=== PATIENT | male | born 1985 | race African-American/Black ===

== ENCOUNTER 2020-01-24 21:03 | Emergency (ER) | payer MEDICAID, SELFPAY ==
[~2020-01-24] VITALS: Ht 170.2 cm; Wt 78.0 kg
[2020-01-24 21:28] VITALS: BP 151/70
--- NOTE | 2020-01-24 21:43 | Emergency Room Report ---
History of Present Illness General Chief Complaint: Skin Rash/Abscess Source: Patient Present Illness HPI 34-year-old male with no significant past medical history history here complaining of a painful and pruritic rash on right lower extremity. Patient reports that started yesterday while he was gardening. Reports that he found to spiders himself however does not recall whether this was due to a spider bite. Obvious bite site noted with cellulitis. Warm to touch. Rates the pain 3 out of 10 at this time without any radiation. Denies any tingling or numbness. Complains of extreme pruritus. Has not taken medication for symptom relief. Has been elevating it and icing it. Denies any chest pain, shortness of breath, fever and chills. Denies any nausea vomiting. Allergies: Coded Allergies: AMOXICILLIN (Verified Allergy, Unknown, 01/24/20) PENICILLINS (Verified Allergy, Unknown, 01/24/20) COVID-19 Screening Contact w/high risk pt: No Recent Travel to affected area: No Experienced COVID-19 symptoms?: No COVID-19 Testing performed CLINICAL COUNSELOR: No Patient History Past Medical History: see triage record Past Surgical History: none Pertinent Family History: none Immunizations: UTD Reviewed Nursing Documentation: PMH: Agreed; PSxH: Agreed Nursing Documentation-PMH Past Medical History: No Stated History Review of Systems All Other Systems: negative except mentioned in HPI Physical Exam Vital Signs Date Time Temp Pulse Resp B/P (MAP) Pulse Ox O2 Delivery O2 Flow Rate FiO2 01/24/20 21:19 98.4 100 20 151/70 (97) 99 Room Air Sp02 EP Interpretation: reviewed, normal General Appearance: no apparent distress, alert, GCS 15, non-toxic Head: normocephalic, atraumatic Eyes: bilateral eye normal inspection, bilateral eye PERRL ENT: hearing grossly normal, normal pharynx, no angioedema, normal voice Neck: full range of motion, supple/symm/no masses Respiratory: chest non-tender, lungs clear, normal breath sounds, no rhonchi, no retraction, speaking full sentences Cardiovascular #1: regular rate, rhythm, no edema, no murmur Cardiovascular #2: 2+ dorsalis pedis (R), 2+ dorsalis pedis (L) Gastrointestinal: normal bowel sounds, non tender, soft, non-distended, no guarding, no rebound Rectal: deferred Genitourinary: no CVA tenderness Musculoskeletal: back normal, no calf tenderness, swelling - Anterior right lateral calf status post insect bite with cellulitis no pus drainage noted Neurologic: alert, motor strength/tone normal, oriented x3, sensory intact, responsive, speech normal Psychiatric: judgement/insight normal, memory normal, mood/affect normal, no suicidal/homicidal ideation Skin: other - Cellulitis right lower leg status post insect bite Lymphatic: no adenopathy Medical Decision Making PA Attestation All diagnoses and treatment plans were reviewed and discussed with my supervising physician Dr. Jacobs Diagnostic Impression: Primary Impression: Cellulitis of leg, right Additional Impression: Insect bite ER Course 34-year-old male with no significant past medical history history here complaining of a painful and pruritic rash on right lower extremity. Patient reports that started yesterday while he was gardening. Reports that he found to spiders himself however does not recall whether this was due to a spider bite. Obvious bite site noted with cellulitis. Warm to touch. Rates the pain 3 out of 10 at this time without any radiation. Denies any tingling or numbness. Complains of extreme pruritus. Has not taken medication for symptom relief. Has been elevating it and icing it. Denies any chest pain, shortness of breath, fever and chills. Denies any nausea vomiting. Ddx considered but are not limited to : Cellulitis, DVT, superficial infection, abscess Vital signs: are WNL, pt. is afebrile H&PE are most consistent with: Infected insect bite, cellulitis ORDERS: Clindamycin, prednisone, ibuprofen, hydrocortisone cream, Bactroban cream, no x-ray necessary at this time as there is no signs suggesting that there might be osteomyelitis also there was no trauma ED INTERVENTIONS: Clindamycin, prednisone, bacitracin, wound clean DISCHARGE: At this time pt. is stable for d/c to home. Will provide printed patient care instructions, and any necessary prescriptions. Care plan and follow up instructions have been discussed with the patient prior to discharge. Patient take medication as directed, follow-up with primary doctor, if worsening symptoms return to the emergency room Last Vital Signs Date Time Temp Pulse Resp B/P (MAP) Pulse Ox O2 Delivery O2 Flow Rate FiO2 01/24/20 21:28 98.4 86 20 151/70 99 Room Air Disposition: HOME, SELF-CARE Condition: Stable Patient Instructions: Cellulitis, [id number], Insect Bite, [id number] Additional Instructions: Patient take medication as directed, follow-up with primary doctor, if worsening symptoms return to the emergency room Сергей Chambers Jan 24, 2020 21:43
[2020-01-24] MEDS ORDERED: CLINDAMYCIN HC150 MG ORAL (21:45)
[2020-01-24] MEDS ORDERED: Clindamycin 150mg cap ORAL SCH (21:45)
[2020-01-24] MEDS ORDERED: HYDROCORTISON28.4 G4 TP (21:45)
[2020-01-24] MEDS ORDERED: Bacitracin Oint UD TOPIC ONE (21:45)
[2020-01-24] MEDS ORDERED: IBUPROFEN600 M1 ORAL (21:45)
[2020-01-24] MEDS ORDERED: PREDNISONE20 MG ORAL (21:45)
[2020-01-24] MEDS ORDERED: MUPIROCIN22 GM TOPIC (21:45)
[2020-01-24 21:54] VITALS: BP 151/70
== END 2020-01-24 21:54 | disposition home or self-care (01) ==
LOC: EMR 21:42
DX: L03.115 Cellulitis of right lower limb (principal); S80.861A Insect bite (nonvenomous), right lower leg, initial encounter; W57.XXXA Bitten or stung by nonvenomous insect and other nonvenomous arthropods, initial encounter; Y93.H2 Activity, gardening and landscaping; Y92.9 Unspecified place or not applicable; Z88.1 Allergy status to other antibiotic agents
CPT/HCPCS: J7512; Z7502; 99282

== ENCOUNTER 2020-04-02 13:49 | Emergency (ER) | payer MEDICAID ==
[~2020-04-02] VITALS: Ht 170.2 cm; Wt 73.5 kg
[~2020-04-02 13:49] MED LIST: CLINDAMYCIN HC150 MG ORAL; HYDROCORTISON28.4 G4 TP; IBUPROFEN600 M1 ORAL; MUPIROCIN22 GM TOPIC; PREDNISONE20 MG ORAL
[2020-04-02 13:53] VITALS: BP 150/105
--- NOTE | 2020-04-02 14:29 | Emergency Room Report ---
History of Present Illness General Chief Complaint: Skin Rash/Abscess Source: Patient Present Illness HPI 34-year-old male with no symptom past medical history here complaining of general pruritus and minimal upper lip swelling started 2 days ago. 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 Patient denies any anaphylaxis and difficulty breathing. Has been applying vinegar over the affected areas and minimal relief. Reports that he developed respiratory as well. Comfortably stay vital signs. Denies any fever and chills and pain. Denies cough and congestion shortness of breath. Patient also complains of pruritic rash and a dry scaly rash on both elbows and reports that he often gets that at work. 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 Patient History Past Medical History: see triage record Past Surgical History: none Pertinent Family History: none Immunizations: UTD Reviewed Nursing Documentation: PMH: Agreed; PSxH: Agreed Nursing Documentation-PMH Past Medical History: No Stated History Hx Cardiac Problems: No Hx Hypertension: No Hx Pacemaker: No Hx Asthma: No Hx COPD: No Hx Diabetes: No Hx Cancer: No Hx Gastrointestinal Problems: No Hx Dialysis: No History Of Psychiatric Problem: No Hx Neurological Problems: No Hx Cerebrovascular Accident: No Hx Seizures: No Review of Systems All Other Systems: negative except mentioned in HPI Physical Exam Vital Signs Date Time Temp Pulse Resp B/P (MAP) Pulse Ox O2 Delivery O2 Flow Rate FiO2 04/02/20 13:53 97.7 92 15 150/105 (120) 98 Room Air Sp02 EP Interpretation: reviewed, normal General Appearance: no apparent distress, alert, GCS 15, non-toxic Head: normocephalic, atraumatic Eyes: bilateral eye normal inspection, bilateral eye PERRL ENT: hearing grossly normal, normal pharynx, normal voice, other - upper lip sight angioedema, no anaphylaxis, airway clear Neck: full range of motion, supple/symm/no masses Respiratory: chest non-tender, lungs clear, normal breath sounds, speaking full sentences Cardiovascular #1: regular rate, rhythm, no edema Gastrointestinal: normal bowel sounds, non tender, soft, non-distended, no guarding, no rebound Rectal: deferred Musculoskeletal: back normal Neurologic: alert, motor strength/tone normal, oriented x3, sensory intact, responsive, speech normal Psychiatric: judgement/insight normal, memory normal, mood/affect normal, no suicidal/homicidal ideation Skin: no rash Lymphatic: no adenopathy Medical Decision Making PA Attestation All my diagnosis and treatment plans were reviewed ad discussed with my supervising physician Dr. Calderon Diagnostic Impression: Primary Impression: Allergic reaction Additional Impressions: Angio-edema Eczema ER Course 34-year-old male with no symptom past medical history here complaining of general pruritus and minimal upper lip swelling started 2 days ago. 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 Patient denies any anaphylaxis and difficulty breathing. Has been applying vinegar over the affected areas and minimal relief. Reports that he developed respiratory as well. Comfortably stay vital signs. Denies any fever and chills and pain. Denies cough and congestion shortness of breath. Patient also complains of pruritic rash and a dry scaly rash on both elbows and reports that he often gets that at work. Ddx considered but are not limited to: Eczema, scabies, lice, allergic reaction , anaphylaxis Vital signs: are WNL, pt. is afebrile H&PE are most consistent with: Allergic reaction, angioedema, eczema ORDERS: Prednisone, hydrocortisone cream, triamcinolone cream, Benadryl, EpiPen ED INTERVENTIONS: First dose of prednisone p.o. DISCHARGE: At this time pt. is stable for d/c to home. Will provide printed patient care instructions, and any necessary prescriptions. Care plan and follow up instructions have been discussed with the patient prior to discharge. Patient take medication as directed, follow primary care provider, use the EpiPen only if anaphylaxis. Also follow-up with sizing sprayer, if worsening symptoms return to the emergency room Last Vital Signs Date Time Temp Pulse Resp B/P (MAP) Pulse Ox O2 Delivery O2 Flow Rate FiO2 04/02/20 13:53 97.7 92 15 150/105 98 Room Air Disposition: HOME, SELF-CARE Condition: Stable Scripts Epinephrine (Epipen 2-Travis) 0.3 Mg/0.3 Ml Auto.injct 0.3 MG IM PRN, #1 EA Prov: Сергей Chambers 04/02/20 Triamcinolone Acetonide (Triamcinolone Acetonide 0.5% Cream*) 15 Gm Cream..g. 2 GM TP BID, #15 GM Prov: Сергей Chambers 04/02/20 Hydrocortisone/Aloe (Hydrocortisone/Aloe 1% Cream*) Y Cr 1 APPLIC TOPIC Q6H PRN for Itching, #30 GM Prov: Сергей Chambers 04/02/20 Diphenhydramine HCl (Benadryl) 25 Mg Capsule 25 MG PO BID, #20 CAP Prov: Сергей Chambers 04/02/20 Prednisone* (PREDNISONE*) 20 Mg Tablet 40 MG ORAL DAILY for 5 Days, #10 TAB Prov: Сергей Chambers 04/02/20 Patient Instructions: Angioedema, [id number], Eczema Additional Instructions: take medication as directed, follow-up with your primary care provider, avoid wearing tight clothing, avoid hot showers, avoid spicy food, if anaphylaxis difficulty breathing return to the emergency room. Use the EpiPen only if anaphylaxis or difficulty breathing. Сергей Chambers Apr 02, 2020 14:29
[2020-04-02] MEDS ORDERED: HYDROCORTISONE-30 GM TOPIC (14:33)
[2020-04-02] MEDS ORDERED: BENADRYL25 M3 PO (14:33)
[2020-04-02] MEDS ORDERED: EPIPEN 2-P0.3 MG/0.3 IM (14:33)
[2020-04-02] MEDS ORDERED: TRIAMCINOLONE A15 G1 TP (14:33)
[2020-04-02] MEDS ORDERED: PREDNISONE20 MG ORAL (14:33)
[2020-04-02 14:45] VITALS: BP 142/90
== END 2020-04-02 14:45 | disposition home or self-care (01) ==
LOC: EMR 14:30
DX: T78.40XA Allergy, unspecified, initial encounter (principal); X58.XXXA Exposure to other specified factors, initial encounter; T78.3XXA Angioneurotic edema, initial encounter; L30.9 Dermatitis, unspecified; Z88.0 Allergy status to penicillin
CPT/HCPCS: J7512; Z7502; 99282